=== PATIENT | male | born 1950 | race Caucasian/White ===

== ENCOUNTER 2018-12-23 14:55 | Outpatient (CLI) ==
[2018-12-23 15:03] VITALS: BP 112/63; TEMP 97.2
[2018-12-23] MEDS ORDERED: PROLIA SUBCUT STA (15:04)
== END 2018-12-23 14:56 | disposition home or self-care (01) ==
LOC: OPMED 14:55
PROVIDERS: ATTEND Family Medicine
DX: M81.0 Age-related osteoporosis without current pathological fracture (principal); Z91.89 Other specified personal risk factors, not elsewhere classified
CPT/HCPCS: 96372

== ENCOUNTER 2024-09-23 10:20 | Observation (INO) ==
--- NOTE | 2024-09-23 10:51 | ED.PDOC ---
General ED Provider: Dr. RANI BAKER MD Chief Complaint: Cough Stated Complaint: 74-year-old male history of tongue cancer, COPD, history of pneumonia, presenting to the emergency department with productive cough of greenish sputum for the past 2 days. It is worse when he bends over he says. He has not any chest pain or leg swelling associated with it. He has no history of DVT or PE. He is not coughing up any blood. He is having some mild shortness of breath with that and noticed that he has been wheezing. He does not have any fevers chills, nausea or vomiting or diarrhea. He is not having a headache. He is not having any aches or pains other than his usual. No palpitations no lightheadedness no syncope shortness of breath is not worse when lying flat. Time Seen by Provider: 09/23/24 10:28 Information Source: Patient Primary Care Provider: MANJU LAU Nursing and Triage Documentation Reviewed and Agree: Yes What is Opioid Naive?: *Opioid Naive implies the patient is not already taking opioids or not chronically receiving opioids on a daily basis. *PRN dosing is not "usually" associated with tolerance. *Patients are at higher risk of over-sedation and aspiration. What is Opioid Tolerant?: *Opioid Tolerance implies less than the expected response to an opioid. *Acquired tolerance is defined by the patient taking 60mg of oral morphine daily (or equianalgesic dose of another opioid) for 1 week or more. *Often associated with chronic pain. *May take more than usual dose to achieve desired pain control. Review of Systems Review Of Systems Constitutional: Denies Chills or Fever [facility] Medical History Chronic obstructive pulmonary disease J44.9 - Chronic obstructive pulmonary disease, unspecified (ICD-10) Environmental allergies Z91.09 - Other allergy status, other than to drugs and biological substances (ICD-10) Pneumonia J18.9 - Pneumonia, unspecified organism (ICD-10) Tongue cancer C02.9 - Malignant neoplasm of tongue, unspecified (ICD-10) Family History Mother Cardiac disease BROTHER Alcoholism Other Thyroid disease Social History Smoking and tobacco status: Former smoker Passive smoking exposure: No Second hand smoke exposure: No Smoking risk assessment performed: No Alcohol intake: never Counseling given: No Substance use type: does not use Adopted: No Caregiver/support person: No Foster care: No Lives independently: Yes USP: No Surgical History History of gastrointestinal surgery Z98.890 - Other specified postprocedural states (ICD-10) History of joint surgery Z98.890 - Other specified postprocedural states (ICD-10) S/P partial glossectomy Z98.890 - Other specified postprocedural states (ICD-10) Status post tonsillectomy Z90.89 - Acquired absence of other organs (ICD-10) Status post tonsillectomy and adenoidectomy Z90.89 - Acquired absence of other organs (ICD-10) Physical Exam Physical Exam Appearance: Reports Well-appearing and No pain distress Eyes: Reports NEREYDA, EOMI and Conjunctiva clear ENT: Reports Ears normal and Nose normal; Denies Dry mucosa Neck: Nonsupple Respiratory: Reports Airway patent, Breath sounds diminished and Wheezes Cardiovascular: Reports RRR and Pulses normal GI/: Reports Soft and Nontender Musculoskeletal: Reports Normal strength Skin: Reports Warm Neurological: Reports Sensation intact Interpretation EKG Interpretation EKG Interpretation By: ED Physician Time of EKG #1: 12:05 Rate: Normal Rhythm: Sinus Carroll: Left ST Segment: Normal Course Course 09/23/24 11:38 09/23/24 11:38 Orders, Labs, Meds: Lab Review 09/23/24 09/23/24 11:00 11:38 WBC 10.67 H RBC 3.62 L Hgb 11.9 L Hct 36.9 L MCV 101.9 H MCH 32.9 H MCHC 32.2 RDW Coeff of Jane 13.7 Plt Count 155 Neutrophils % (Manual) 80.0 H Band Neutrophils % 2.0 Lymphocytes % (Manual) 10.0 Monocytes % (Manual) 8.0 Eosinophils % (Manual) 0.0 Basophils % (Manual) 0.0 Hypochromasia 1+ Anisocytosis 2+ Sodium 130.3 L Potassium 4.57 Chloride 94.4 L Carbon Dioxide 31.2 H Anion Gap 9.27 BUN 16.0 Creatinine 0.72 Estimated GFR (MDRD) 107.00 BUN/Creatinine Ratio 22.22 Glucose 129.9 H Calcium 8.97 Total Bilirubin 0.48 AST 36.5 ALT 15.7 Alkaline Phosphatase 62.8 Troponin I < 0.012 NT-Pro-B Natriuret Pep 550 H Total Protein 7.00 Albumin 3.85 Globulin 3.15 Albumin/Globulin Ratio 1.22 Influ A Molecular Assay Negative by naat Influ B Molecular Assay Negative by naat RSV Antigen Negative by naat SARS CoV-2 RNA Rapid NELLY Negative Orders Category Date Time Status EKG-(ED ONLY) Stat CARDIO 09/23/24 11:33 Completed CBC W/ AUTO DIFF Stat LAB 09/23/24 11:38 Completed CMP [COMPREHENSIVE METABOLIC PANEL] Stat LAB 09/23/24 11:38 Completed COVID [SARS COV-2 RNA RAPID NELLY] Stat LAB 09/23/24 11:00 Completed FLU A & B MOLECULAR [FLU A/B MOLECULAR] Stat LAB 09/23/24 11:00 Completed MANUAL DIFFERENTIAL Stat LAB 09/23/24 11:38 Completed NT-PROBNP(ED) Stat LAB 09/23/24 11:38 Completed RSV Stat LAB 09/23/24 11:00 Completed TROPONIN I Stat LAB 09/23/24 11:38 Completed Azithromycin [Zithromax] Meds 09/23/24 10:51 Discontinued 500 mg PO ONCE ONE Ceftriaxone 1 gm Vial [Rocephin 1 gm Vial] Meds 09/23/24 11:31 Discontinued 1 gm IVP ONCE ONE Ipratropium/Albuterol Neb [Duoneb] Meds 09/23/24 10:47 Discontinued 3 ml NEB ONCE ONE Ipratropium/Albuterol Neb [Duoneb] Meds 09/23/24 11:32 Discontinued 3 ml NEB ONCE ONE Ipratropium/Albuterol Neb [Duoneb] Meds 09/23/24 11:32 Discontinued 3 ml NEB ONCE ONE Prednisone Meds 09/23/24 10:47 Discontinued 50 mg PO ONCE STA CXR [CHEST, 2 VIEWS PA & LAT] Stat RADS 09/23/24 10:47 Completed Medications Discontinued Medications Generic Name Dose Route Start Last Admin Trade Name Freq PRN Reason Stop Dose Admin Albuterol/Ipratropium 3 ml 09/23/24 10:47 09/23/24 11:05 Ipratropium/Albuterol Vial.[facility] 09/23/24 10:48 3 ml ONCE ONE Administration Albuterol/Ipratropium 3 ml 09/23/24 11:32 09/23/24 11:47 Ipratropium/Albuterol Vial.[facility] 09/23/24 11:33 3 ml ONCE ONE Administration Albuterol/Ipratropium 3 ml 09/23/24 11:32 09/23/24 12:10 Ipratropium/Albuterol Vial.[facility] 09/23/24 11:33 3 ml ONCE ONE Administration Azithromycin 500 mg 09/23/24 10:51 09/23/24 10:59 Azithromycin 250 Mg Tablet PO 09/23/24 10:52 500 mg ONCE ONE Administration Ceftriaxone Sodium 1 gm 09/23/24 11:31 09/23/24 12:05 Ceftriaxone 1 Gm Vial IVP 09/23/24 11:32 1 gm ONCE ONE Administration Prednisone 50 mg 09/23/24 10:47 09/23/24 11:00 Prednisone 20 Mg Tablet PO 09/23/24 10:48 50 mg ONCE STA Administration Vital Signs: Temp Pulse Resp BP Pulse Ox 09/23/24 10:29 98.4 F 86 20 107/67 94 L Discharge Plan Discharge Patient Disposition: PLACED OBSERVATION Discharge Problem: Pneumonia, Acute exacerbation of chronic obstructive pulmonary disease Did you review [place] [employer] ATTENDANT for ALL controlled substances?: Not Applicable ED Provider: RANI BAKER Condition: Stable Physician Progress Note: 74-year-old male history of COPD, tongue cancer, presented to the emergency department with cough productive sputum. He is concerned he has pneumonia. He is afebrile his vitals are stable however he is satting 94 to 95% on room air. He is significantly wheezy bilaterally with decreased breath sounds however he is not using any accessory muscle use, no tripoding, no signs of respiratory distress. His exam is otherwise unremarkable he has no pitting edema no JVD no calf tenderness. His subseem most consistent with viral illness likely triggering a COPD exacerbation however pneumonia is also on the differential. Given the fact that patient is having COPD exacerbation we will treat with steroids give a dose of azithromycin. Will also get a chest x-ray. Neb treatment in the emergency department. Patient satting 90 to 91%, potential pneumonia on x-ray. Will give 2 more DuoNebs. Added on lab work as patient may need to be admitted and expanded differential a bit, EKG CBC CMP proBNP and troponin. Patient still having O2 sats going down to 90% without ambulation. Discussed with him and family member I do feel prudent to admit him to the hospital. Discussed with the hospitalist to agree to admit.
[2024-09-23] MEDS: ZITHROMAX PO ONE (10:59)
[2024-09-23] MEDS: PREDNISONE PO STA (11:00)
[2024-09-23] MEDS: DUONEB NEB ONE ×3 (11:05→12:10)
--- NOTE | 2024-09-23 11:18 | DI ---
EXAM: CHEST RADIOGRAPH TECHNIQUE: Two views. Frontal and lateral. HISTORY: Shortness of breath COMPARISON: None. FINDINGS: Adequately positioned right IJ Mediport catheter Cardiac silhouette, mediastinal size and pulmonary vasculature are normal. COPD with mild hyperinflation and mild to moderate diffuse chronic interstitial disease. Left lung base small amount of increased density could be indicative of developing pneumonic infiltra marybel. No pleural effusion or pneumothorax. Aortic arch calcified plaque. Generalized osteopenia. Mid and lower level pair of thoracic vertebrae with anterior wedge compressi on deformity/fracture of undetermined age. IMPRESSION: COPD . Left lung base patchy densities could be developing infiltrates. Osteopenia with two thoracic vertebral bodies with anterior wedge compression deformity/fracture of u ndetermined age..
[2024-09-23 11:27] LABS: MOLECULAR FLU A NEGATIVE BY NAAT (NEGATIVE); MOLECULAR FLU B NEGATIVE BY NAAT (NEGATIVE); RSV MOLECULAR NEGATIVE BY NAAT (NEGATIVE)
[2024-09-23 11:43] LABS: HEMATOCRIT 36.9 % (42.0-52.0); HEMOGLOBIN 11.9 g/dl (14.0-18.0); MEAN CORPUSCULAR HEMOGLOBIN 32.9 pg (27.0-31.0); MEAN CORPUSCULAR HGB CONC 32.2 (31.8-35.4); MEAN CORPUSCULAR VOLUME 101.9 fl (80.0-94.0); PLATELET COUNT 155 10^3/uL (140-440); RDW COEFFICIENT OF VARIATION 13.7 % (11.6-14.8); RED BLOOD COUNT 3.62 10^6/ul (4.70-6.10); WHITE BLOOD COUNT 10.67 K/ul (4.2-10.2)
[2024-09-23 11:59] LABS: ALANINE AMINOTRANSFERASE 15.7 U/L (0-50); ALBUMIN 3.85 g/dL (3.5-5.0); ALKALINE PHOSPHATASE 62.8 U/L (56-119); ASPARTATE AMINO TRANSFERASE 36.5 U/L (17-59); BILIRUBIN,TOTAL 0.48 mg/dL (0.2-1.3); CALCIUM 8.97 mg/dL (8.4-10.2); CARBON DIOXIDE 31.2 mmol/L (22-30.0); CHLORIDE 94.4 mmol/L (98-107); CREATININE 0.72 mg/dL (0.60-1.10); GLUCOSE 129.9 mg/dL (74-106); POTASSIUM 4.57 mmol/L (3.5-5.1); SODIUM 130.3 mmol/L (134.5-145)
[2024-09-23] MEDS: ROCEPHIN 1 GM VIAL IVP ONE (12:05)
[2024-09-23 12:07] LABS: SARS COV-2 RNA RAPID NAAT NEGATIVE (NEGATIVE)
[2024-09-23 12:15] LABS: TROPONIN I < 0.012 ng/ml (0.0000-0.120)
[2024-09-23 12:16] LABS: ANISOCYTOSIS 2+ (NOT PRESENT); HYPOCHROMASIA 1+ (NOT PRESENT)
[2024-09-23 14:36] VITALS: BMI 17.0
[2024-09-23] MEDS ORDERED: ZOFRAN SDV IVP PRN (14:48)
[2024-09-23] MEDS ORDERED: TYLENOL PO PRN (14:48)
--- NOTE | 2024-09-23 15:15 | PCM ---
Date of Service Date Seen by Provider: 09/23/24 Time Seen by Provider: 15:00 Admit Day/Time Admission Date: 09/23/24 Admission Time: 12:43 Reason for Admission Chief Complaint: PNEUMONIA, COPD EXACERBATION, HYPOXIA Hospital Provider Hospital Provider: OSBALDO HAMMOND PA-C, [facility] Primary Care Physician Primary Care Physician: MANJU LAU History of Present Illness History of Present Illness: Patient is a 74 year old male with pmhx of COPD, hyperlipidemia, hx of tongue cancer who presents for worsening cough and sob over the last few days. States his sputum has been green. He has had a flu and pneumonia vaccine in the past. Denies smoking. No chest pain, n/v/d. In ER CXR showing signs of pneumonia. He was noted to be wheezy despite breathing treatment. He was given rocephin and azith and oral pred. He continued to be 90-91% on RA. He was negative for flu and covid. Admitted to [facility] for acute copd exacerbation and CAP. Case Discussed With Case Discussed With: Patient's case was discussed with the ER Physicians, Dr. Cotto. [facility] Medical History Pneumonia J18.9 - Pneumonia, unspecified organism (ICD-10) Chronic obstructive pulmonary disease J44.9 - Chronic obstructive pulmonary disease, unspecified (ICD-10) Environmental allergies Z91.09 - Other allergy status, other than to drugs and biological substances (ICD-10) Tongue cancer C02.9 - Malignant neoplasm of tongue, unspecified (ICD-10) Surgical History S/P partial glossectomy Z98.890 - Other specified postprocedural states (ICD-10) History of gastrointestinal surgery Hernia Z98.890 - Other specified postprocedural states (ICD-10) Status post tonsillectomy Z90.89 - Acquired absence of other organs (ICD-10) History of joint surgery Rt Hip Z98.890 - Other specified postprocedural states (ICD-10) Status post tonsillectomy and adenoidectomy Z90.89 - Acquired absence of other organs (ICD-10) Family History Mother Cardiac disease BROTHER Alcoholism Heart attack COPD (chronic obstructive pulmonary disease) Other Thyroid disease Social History Smoking and tobacco status: Former smoker Passive smoking exposure: No Second hand smoke exposure: No Smoking risk assessment performed: No Alcohol intake: current Counseling given: No Details: "couple beers occassionally" Substance use type: does not use Adopted: No Caregiver/support person: No Foster care: No Lives independently: Yes [facility]: No Allergies Allergies Allergy/AdvReac Type Severity Reaction Status Date / Time miconazole (From Neosporin AdvReac Unknown Verified 09/23/24 10:27 AF) Current Medications Home Medications Acetaminophen (Acetaminophen 325 Mg Tablet) 650 mg PO Q4H PRN PRN Reason: Mild Pain Albuterol/Ipratropium (Ipratropium/Albuterol Vial.Neb) 3 ml NEB RTQ4H PRN PRN Reason: Wheezing Last Admin: 09/23/24 16:42 Dose: 3 ml Aspirin (Aspirin 81 Mg Tablet.Dr) 81 mg PO DAILYWM2 DAREN Atorvastatin Calcium (Atorvastatin Calcium 20 Mg Tablet) 20 mg PO DAILY DAREN Azelastine HCl (Azelastine Hcl 30 Ml Nasal [place]) 2 spray ALLI 2XD DAREN Azithromycin (Azithromycin 250 Mg Tablet) 500 mg PO DAILY DAREN Stop: 09/27/24 08:59 Fluticasone Propionate (Fluticasone Propionate 16 Gm Nasal [place]) 1 spray ALLI DAILY DAREN CEFTRIAXONE/D5W 1 GM PREMIX (Rocephin 1 Gm/50 Ml D5w) 1 gm in 50 mls @ 100 mls/hr IV DAILY DAREN Stop: 09/27/24 08:59 Methylprednisolone Sodium Succinate (Methylprednisolone Sod Succ/Pf 40 Mg/Ml Vial) 40 mg IVP Q8HR DAREN Last Admin: 09/23/24 16:06 Dose: 40 mg Mirtazapine (Mirtazapine 15 Mg Tablet) 7.5 mg PO BEDTIME DAREN Ondansetron HCl (Ondansetron Hcl/Pf 4 Mg/2 Ml Sdv) 4 mg IVP Q6H PRN PRN Reason: Nausea / Vomiting Umeclidinium/Vilanterol (Umeclidinium Brm/Vilanterol 1 Each Blst.W.Dev) 1 inh IH DAILY DAREN albuterol sulfate 90 mcg/actuation aerosol inhaler 2 puff inhalation Q4-6H PRN SOB 07/02/19 [History Confirmed 09/23/24] aspirin 81 mg capsule,delayed release 81 mg PO DAILY 01/04/21 [History Confirmed 09/23/24] atorvastatin 20 mg tablet 20 mg PO .Daily 01/04/21 [History Confirmed 09/23/24] fluticasone propionate 50 mcg/actuation nasal spray,suspension (Flonase Allergy Relief) 1 spray intranasal DAILY #16 grams 01/29/23 [Rx Confirmed 09/23/24] umeclidinium 62.5 mcg-vilanterol 25 mcg/actuation powdr for inhalation (Anoro Ellipta) 1 inh inhalation DAILY 09/09/23 [History Confirmed 09/23/24] azelastine 137 mcg (0.1 %) nasal spray 2 spray intranasal 2XD 09/23/24 [History Confirmed 09/23/24] docusate sodium 100 mg capsule (Colace) 100 mg PO BID 09/23/24 [History Confirmed 09/23/24] mirtazapine 7.5 mg tablet 7.5 mg PO BEDTIME 09/23/24 [History Confirmed 09/23/24] Opioid Naive vs. Tolerant Does Patient Take Opioids?: No Is Patient Opioid Naive?: Yes What is Opioid Naive?: *Opioid Naive implies the patient is not already taking opioids or not chronically receiving opioids on a daily basis. *PRN dosing is not "usually" associated with tolerance. *Patients are at higher risk of over-sedation and aspiration. Is Patient Opioid Tolerant?: No What is Opioid Tolerant?: *Opioid Tolerance implies less than the expected response to an opioid. *Acquired tolerance is defined by the patient taking 60mg of oral morphine daily (or equianalgesic dose of another opioid) for 1 week or more. *Often associated with chronic pain. *May take more than usual dose to achieve desired pain control. Review of Systems Constitutional: Reports Fatigue and Weakness; Denies Fever Head: Reports Normocephalic and Atraumatic Cardiovascular: Denies Chest pain, Chest Pressure or Edema Respiratory: Reports Cough, Shortness of air and Wheeze Gastrointestinal: Denies Nausea, Vomiting, Diarrhea, Abdominal pain or Melena Genitourinary: Denies Dysuria or Hematuria Neurological: Denies Dizziness or Syncope Physical examination Most Recent Vital Signs: Most Recent Vital Signs Temperature 98.1 F 09/23/24 13:58 Temperature Source Tympanic 09/23/24 13:58 Temperature Source Infrared 09/23/24 10:29 Pulse Rate 79 09/23/24 13:58 Respiratory Rate 16 09/23/24 13:58 Blood Pressure 107/67 09/23/24 10:29 Blood Pressure Right Arm 112/68 09/23/24 13:58 Blood Pressure Position Sitting 09/23/24 13:58 O2 Sat by Pulse Oximetry 91 L 09/23/24 13:58 Oxygen Delivery Method Room Air 09/23/24 14:00 Height 6 ft 4 in 09/23/24 13:58 Weight 63.5 kg 09/23/24 13:58 Appearance: Positive No Apparent Distress and Alert and Oriented x3 Skin: Positive [place], Warm, Good Turgor and Good Color HEENT: Positive Normocephalic and Atraumatic Neck: Positive Supple and Midline Trachea Chest/Lungs: Positive Symmetrical With Equal Breath Sounds and Wheezes (selin, expiratory ) Heart: Positive RRR GI/: Positive Soft, Nontender, Bowel Sounds Normal and No Distention Extremities: Negative Edema Neurological: Positive Cranial Nerves Intact, Alert, Oriented and Muscle Strength 5/5 in Upper and Lower Extremities Bilaterally Psychiatric: Positive Oriented x4, Appropriate Mood and Appropriate Affect Labs This Visit Labs This Visit: Labs This Visit 09/23/24 09/23/24 11:00 11:38 WBC 10.67 H RBC 3.62 L Hgb 11.9 L Hct 36.9 L MCV 101.9 H MCH 32.9 H MCHC 32.2 RDW Coeff of Jane 13.7 Plt Count 155 Neutrophils % (Manual) 80.0 H Band Neutrophils % 2.0 Lymphocytes % (Manual) 10.0 Monocytes % (Manual) 8.0 Eosinophils % (Manual) 0.0 Basophils % (Manual) 0.0 Hypochromasia 1+ Anisocytosis 2+ Sodium 130.3 L Potassium 4.57 Chloride 94.4 L Carbon Dioxide 31.2 H Anion Gap 9.27 BUN 16.0 Creatinine 0.72 Estimated GFR (MDRD) 107.00 BUN/Creatinine Ratio 22.22 Glucose 129.9 H Calcium 8.97 Total Bilirubin 0.48 AST 36.5 ALT 15.7 Alkaline Phosphatase 62.8 Troponin I < 0.012 NT-Pro-B Natriuret Pep 550 H Total Protein 7.00 Albumin 3.85 Globulin 3.15 Albumin/Globulin Ratio 1.22 Influ A Molecular Assay Negative by naat Influ B Molecular Assay Negative by naat RSV Antigen Negative by naat SARS CoV-2 RNA Rapid NELLY Negative Imaging Imaging: EXAM: CHEST RADIOGRAPH TECHNIQUE: Two views. Frontal and lateral. HISTORY: Shortness of breath COMPARISON: None. FINDINGS: Adequately positioned right IJ Mediport catheter Cardiac silhouette, mediastinal size and pulmonary vasculature are normal. COPD with mild hyperinflation and mild to moderate diffuse chronic interstitial disease. Left lung base small amount of increased density could be indicative of de veloping pneumonic infiltrates. No pleural effusion or pneumothorax. Aortic arch calcified plaque. Generalized osteopenia. Mid and lower level pair of thoracic vertebrae with anterior wedge compression deformity/fracture of undetermined age. IMPRESSION: COPD . Left lung base patchy densities could be developing infiltrates. Osteopenia with two thoracic vertebral bodies with anterior wedge compression deformity/fracture of undetermined age.. Review Statement Review Statement: I have independently reviewed and interpreted the labs/EKGs/imaging that were ordered by the ER provider. I have reviewed all outside records that are available currently in our EMR including imaging/notes/labs from previous visits. Plan Plan: 1. Acute COPD exacerbation - abx/steroids/nebs/rt consult, o2 prn. 2. CAP, left - Will cover with abx. Plan as above. Viral swabs negative. O2 prn. 3. Hyperlipidemia - Cont home meds DVT Prophylaxis: Ambulation Time Spent: Greater than 80 minutes spent with patient, 50% of the time spent with this patient was devoted to counseling and coordination of care. [facility]annin minutes spent discussing advance care planning. Admit to: Obs Discussed Plan of Care with Dr. Fawad Barney. Medications Medication Orders: Medications Ordered Category Date Time Status Acetaminophen [Tylenol] Meds 09/23/24 14:48 Active 650 mg PO Q4H PRN Atorvastatin Calcium [Lipitor] Meds 09/23/24 21:00 Ordered 20 mg PO BEDTIME Azelastine HCl [Astelin 0.1%] Meds 09/23/24 21:00 Ordered 2 spray ALLI 2XD Azithromycin [Zithromax] Meds 09/24/24 09:00 Active 500 mg PO DAILY Ceftriaxone/D5w 1 gm Premix [Rocephin 1 gm/50 ml D5w] Meds 09/24/24 09:00 Active 1 gm in 50 ml IV DAILY Fluticasone Propionate [Flonase] Meds 09/24/24 09:00 Ordered 1 spray ALLI DAILY Ipratropium/Albuterol Neb [Duoneb] Meds 09/23/24 14:48 Active 3 ml NEB RTQ4H PRN Methylprednisolone Sod Succ/Pf [Solu-Medrol 40 mg] Meds 09/23/24 14:50 Active 40 mg IVP Q8HR Mirtazapine [Remeron] Meds 09/23/24 21:00 Ordered 7.5 mg PO BEDTIME Ondansetron HCl/Pf [Zofran Sdv] Meds 09/23/24 14:48 Active 4 mg IVP Q6H PRN Umeclidinium Brm/Vilanterol Tr [Anoro Ellipta 62.5-25 Meds 09/24/24 09:00 Ordered Mcg INH] 1 inh IH DAILY aspirin Meds 09/24/24 09:00 Ordered 81 mg PO DAILY
[2024-09-23] MEDS: SOLU-MEDROL 40 MG IVP SCH (16:06)
[2024-09-23] MEDS: DUONEB NEB PRN (16:42)
[2024-09-23] MEDS: REMERON PO SCH (20:57)
[2024-09-23] MEDS: ASTELIN 0.1% NAS SCH (20:57)
[2024-09-23] MEDS ORDERED: LIPITOR PO SCH (21:00)
[2024-09-24 05:35] LABS: BASOPHILS % (AUTO) 0.1 % (0.0-3.0); HEMOGLOBIN 10.9 g/dl (14.0-18.0); IMMATURE GRANULOCYTE % (AUTO) 0.3 % (0.0-5.0); LYMPHOCYTES # (AUTO) 0.3 K/uL (0.60-3.4); MEAN CORPUSCULAR HEMOGLOBIN 32.7 pg (27.0-31.0); MEAN CORPUSCULAR VOLUME 99.1 fl (80.0-94.0); MONOCYTES # (AUTO) 0.2 K/uL (0.4-2.0); MONOCYTES % (AUTO) 1.7 (0-10); NEUTROPHILS # (AUTO) 10.7 K/ul (2.0-6.9); NEUTROPHILS % (AUTO) 94.9 % (42.2-75.2); PLATELET COUNT 151 10^3/uL (140-440); RDW COEFFICIENT OF VARIATION 13.2 % (11.6-14.8); RED BLOOD COUNT 3.33 10^6/ul (4.70-6.10); WHITE BLOOD COUNT 11.29 K/ul (4.2-10.2)
[2024-09-24 05:48] LABS: ALANINE AMINOTRANSFERASE 15.2 U/L (0-50); ALBUMIN 3.49 g/dL (3.5-5.0); ALKALINE PHOSPHATASE 63.6 U/L (56-119); ASPARTATE AMINO TRANSFERASE 27.2 U/L (17-59); BILIRUBIN,TOTAL 0.18 mg/dL (0.2-1.3); BLOOD UREA NITROGEN 18.8 mg/dL (9-20); CALCIUM 9.1 mg/dL (8.4-10.2); CARBON DIOXIDE 27.4 mmol/L (22-30.0); CREATININE 0.62 mg/dL (0.60-1.10); POTASSIUM 4.62 mmol/L (3.5-5.1); SODIUM 129.5 mmol/L (134.5-145); TOTAL PROTEIN 6.46 g/dL (6.3-8.2)
[2024-09-24] MEDS: ASPIRIN EC PO SCH (07:22)
[2024-09-24 08:08] VITALS: RESP 18
[2024-09-24] MEDS: ZITHROMAX PO SCH (08:51)
[2024-09-24] MEDS: LIPITOR PO SCH (08:51)
[2024-09-24] MEDS: ROCEPHIN 1 GM/50 ML D5W 1 GM/50 ML BAG IV SCH (08:52)
[2024-09-24] MEDS: ANORO ELLIPTA 62.5-25 MCG INH IH SCH (08:52)
[2024-09-24] MEDS: FLONASE NAS SCH (08:52)
[2024-09-24] MEDS: SODIUM CHLORIDE 1,000 ML IV SCH (08:57)
[2024-09-24] MEDS ORDERED: NON-FORMULARY MEDICATION (Aspirin 81 mg Capsule,Delayed Release(Dr/Ec)) PO SCH (09:00)
[2024-09-24 13:53] LABS: BLOOD UREA NITROGEN 22.3 mg/dL (9-20); CALCIUM 9.17 mg/dL (8.4-10.2); CARBON DIOXIDE 29.1 mmol/L (22-30.0); CREATININE 0.66 mg/dL (0.60-1.10); POTASSIUM 4.48 mmol/L (3.5-5.1); SODIUM 129.1 mmol/L (134.5-145)
--- NOTE | 2024-09-24 14:18 | DCSUM ---
Admission Date Admission Date: 09/23/24 Discharge Date Discharge Date: 09/24/24 Admission Diagnosis Admission Diagnosis: 1. Acute COPD exacerbation 2. CAP, left Discharge Diagnosis Discharge Diagnosis: 1. Acute COPD exacerbation 2. CAP, left 3. Hyperlipidemia Hospital Provider Hospital Provider: OSBALDO HAMMOND PA-C, [facility] Primary Care Physician Primary Care Physician: MANJU LAU Summary of History and Physical Summary of History and Physical: Patient is a 74 year old male with pmhx of COPD, hyperlipidemia, hx of tongue cancer who presents for worsening cough and sob over the last few days. States his sputum has been green. He has had a flu and pneumonia vaccine in the past. Denies smoking. No chest pain, n/v/d. In ER CXR showing signs of pneumonia. He was noted to be wheezy despite breathing treatment. He was given rocephin and azith and oral pred. He continued to be 90-91% on RA. He was negative for flu and covid. Ad[facility] to [facility] for acute copd exacerbation and CAP. Hospital Course Subjective: Patient treated with rocephin, azith, and solumedrol. He is feeling much better. Wheezing greatly improved today. He has remained on RA. He feels comfortable with discharge to home. Na is low at 129, stayed at 129 despite some NS fluids. Suspect it is due to his alcohol use and acute illness. Advised him to f/u with pcp for recheck and potentially further investigation if no improvement. Pt agrees to plan of care. States he has an albuterol inhaler at home. Appearance: Pleasant and No Apparent Distress HEENT: MMM CVS: No Murmur Abdomen: Soft, Non-Tender and No Distention Respiratory: Other (+mild wheezing selin, much improved ) Extremities: No Edema Additional Findings: Pt ambulatory in his room. No conversational dyspnea. Vital Signs: Most Recent Vital Signs Temperature 97.9 F 09/24/24 10:00 Temperature Source Temporal Artery Scan 09/24/24 10:00 Temperature Source Infrared 09/23/24 10:29 Pulse Rate 77 09/24/24 10:00 Respiratory Rate 18 09/24/24 10:00 Blood Pressure 120/74 09/24/24 10:00 Blood Pressure Mean 89 09/24/24 10:00 Blood Pressure Right Arm 112/68 09/23/24 13:58 Blood Pressure Location Right Arm 09/24/24 10:00 Blood Pressure Position Supine 09/24/24 05:09 O2 Sat by Pulse Oximetry 92 L 09/24/24 10:00 Oxygen Delivery Method Room Air 09/24/24 13:00 Height 6 ft 4 in 09/24/24 09:36 Weight 63.5 kg 09/24/24 09:36 Telemetry Type Remote Telemetry 09/24/24 13:00 Telemetry Monitoring Continues 09/24/24 13:00 Irregular Telemetry Rate (Approximate) 70-80 BPM 09/24/24 13:00 Telemetry Heart Rate 80 09/24/24 13:00 EKG OH Interval 0.13 09/24/24 13:00 EKG QRS Interval 0.07 09/24/24 13:00 Telemetry Strip Reading sr 09/24/24 13:00 Imaging: EXAM: CHEST RADIOGRAPH TECHNIQUE: Two views. Frontal and lateral. HISTORY: Shortness of breath COMPARISON: None. FINDINGS: Adequately positioned right IJ Mediport catheter Cardiac silhouette, mediastinal size and pulmonary vasculature are normal. COPD with mild hyperinflation and mild to moderate diffuse chronic interstitial disease. Left lung base small amount of increased density could be indicative of developing pneumonic infiltrates. No pleural effusion or pneumothorax. Aortic arch calcified plaque. Generalized osteopenia. Mid and lower level pair of thoracic vertebrae with anterior wedge compression deformity/fracture of undetermined age. IMPRESSION: COPD . Left lung base patchy densities could be developing infiltrates. Osteopenia with two thoracic vertebral bodies with anterior wedge compression deformity/fracture of undetermined age.. Lab Results Last 24 Hours: 09/24/24 09/24/24 13:37 05:07 WBC 11.29 H RBC 3.33 L Hgb 10.9 L Hct 33.0 L MCV 99.1 H MCH 32.7 H MCHC 33.0 RDW Coeff of Jane 13.2 Plt Count 151 Immature Gran % (Auto) 0.3 Neut % (Auto) 94.9 H Lymph % (Auto) 3.0 L [place] % (Auto) 1.7 Eos % (Auto) 0.0 Baso % (Auto) 0.1 Neut # (Auto) 10.7 H Lymph # (Auto) 0.3 L [place] # (Auto) 0.2 L Eos # (Auto) 0.0 Baso # (Auto) 0.0 Immature Gran # (Auto) 0.0 Sodium 129.1 L 129.5 L Potassium 4.48 4.62 Chloride 93.0 L 95.0 L Carbon Dioxide 29.1 27.4 Anion Gap 11.48 11.72 BUN 22.3 H 18.8 Creatinine 0.66 0.62 Estimated GFR (MDRD) 119.00 128.00 BUN/Creatinine Ratio 33.78 30.32 Glucose 174.0 H 146.0 H Calcium 9.17 9.10 Total Bilirubin 0.18 L AST 27.2 ALT 15.2 Alkaline Phosphatase 63.6 Total Protein 6.46 Albumin 3.49 L Globulin 2.97 Albumin/Globulin Ratio 1.17 Discharge Instructions Discharge Planning: Discharge Planning > [address] Fawad Barney. Discharge Medications: Medications at Discharge (Home Meds & RX) albuterol sulfate 90 mcg/actuation aerosol inhaler 2 puff inhalation Q4-6H PRN SOB 07/02/19 aspirin 81 mg capsule,delayed release 81 mg PO DAILY 01/04/21 atorvastatin 20 mg tablet 20 mg PO .Daily 01/04/21 fluticasone propionate 50 mcg/actuation nasal spray,suspension (Flonase Allergy Relief) 1 spray intranasal DAILY #16 grams 01/29/23 umeclidinium 62.5 mcg-vilanterol 25 mcg/actuation powdr for inhalation (Anoro Ellipta) 1 inh inhalation DAILY 09/09/23 azelastine 137 mcg (0.1 %) nasal spray 2 spray intranasal 2XD 09/23/24 docusate sodium 100 mg capsule (Colace) 100 mg PO BID 09/23/24 mirtazapine 7.5 mg tablet 7.5 mg PO BEDTIME 09/23/24 azithromycin 250 mg tablet 500 mg (2 x 250 mg) PO DAILY #3 tabs 09/24/24 cefpodoxime 200 mg tablet 200 mg PO BID 5 days #10 tabs 09/24/24 prednisone 20 mg tablet 20 mg PO BID 5 days #10 tabs 09/24/24 Discharge Plan Discharge Discharge Orders: Discharge Patient (ONCE); Ordered 09/24/24 Ordered By: OSBALDO HAMMOND Activity Restrictions/Additional Instructions: Discharge to home Dx: Pneumonia Pharmacy: [facility] Finish antibiotics and steroids Your sodium was noted to be mildly low - please follow up with PCP for recheck Return with worsening symptoms Instructions: Community Acquired Pneumonia (GEN) Patient Disposition: HOME SELF-CARE Prescriptions: New azithromycin 250 mg Tablet 500 mg PO DAILY Qty: 3 0RF Rx Instructions: Start 09/25/24 cefpodoxime 200 mg tablet 200 mg PO BID 5 Days Qty: 10 0RF Rx Instructions: must administer with a meal/food prednisone 20 mg tablet 20 mg PO BID 5 Days Qty: 10 0RF Continued atorvastatin 20 mg Tablet 20 mg PO .Daily aspirin 81 mg Capsule,Delayed Release(Dr/Ec) 81 mg PO DAILY azelastine 137 mcg (0.1 %) spray,non-aerosol 2 spray INTRANASAL 2XD mirtazapine 7.5 mg tablet 7.5 mg PO BEDTIME docusate sodium [Colace] 100 mg capsule 100 mg PO BID albuterol sulfate 90 mcg/actuation Hfa Aerosol Inhaler 2 puff INHALATION Q4-6H PRN (Reason: SOB) Anoro Ellipta 62.5-25 mcg/actuation blister with device 1 inh inhalation DAILY fluticasone propionate [Flonase Allergy Relief] 50 mcg/actuation spray,suspension 1 spray intranasal DAILY Qty: 16 12RF Did you review [place] [employer] for ALL controlled substances?: Not Applicable Discussed opioids are addictive and Narcan is available by prescription or from pharmacy.: No Condition: Stable Referrals: MANJU LAU, DEJUAN,[employer]RECTIONAL OFFICER CHIEF [Primary Care Provider] - 09/29/24 10:30 am
[2024-09-24 15:16] VITALS: BP 121/63; PULSE 86; TEMP 97.8
== END 2024-09-24 15:00 | disposition home or self-care (01) ==
LOC: ED 10:20 → MEDSURG B 10:20
PROVIDERS: ADMIT Hospitalist; ATTEND Physician Assistant
DX: J44.0 Chronic obstructive pulmonary disease with (acute) lower respiratory infection; R09.02 Hypoxemia; J18.9 Pneumonia, unspecified organism; Z51.81 Encounter for therapeutic drug level monitoring; Z20.822 Contact with and (suspected) exposure to COVID-19; Z85.810 Personal history of malignant neoplasm of tongue; J44.1 Chronic obstructive pulmonary disease with (acute) exacerbation; E78.5 Hyperlipidemia, unspecified; Z79.899 Other long term (current) drug therapy